=== PATIENT | male | born 2000 | race Caucasian/White ===

== ENCOUNTER 2021-11-08 07:02 | Inpatient (IN) | payer OTHER ==
[2021-11-08] VITALS (31 sets, daily range): BP systolic 0–193; BP diastolic 52–103
[~2021-11-08] VITALS: Ht 172.7 cm; Wt 50.6 kg
--- NOTE | 2021-11-08 07:26 | NUR ---
Pt arrived via stretcher from [facility] on mechanical ventilation. No belongings with the pt. Pt is not on sedation. Rectal tube placed for severe liquid stool loss. Pupils fixed and dilated and no gag reflex present. Reid scale of 3. Addendum: 11/08/21 at 0741 by ZURI MAS RN RN Amended: Links added.
[2021-11-08 07:59] LABS: BASE EXCESS COOX -9 mmol/L (-3-3); HCO3 COOX 15 mmol/L (21-28); METHEMOGLOBIN 0.4 % (0.0-1.9); PCO2 COOX 28 mmHg (35-46); PO2 COOX 143 mmHg (85-108); SAT O2 COOX 99 % (92-99)
--- NOTE | 2021-11-08 08:05 | RAD ---
XR CHEST 1V INDICATION: ETT PLACEMENT COMPARISON STUDY: 11/08/2021. FINDINGS: Life Support Devices: Endotracheal tube terminates 3 cm above the atilio. Enteric tube courses into t he stomach and beyond the inferior [id number]. Lungs: Normal lung volume. Improving right perihilar opacities. Pleura: No pleural effusion or pneumothorax. Heart and Mediastinum: Stable cardiomediastinal silhouette and great vessels. Bones and Soft Tissues: Stable regional skeleton and soft tissues. IMPRESSION: 1. Improving right perihilar opacities. 2. Life support devices as above. Electronically signed by: Diogenes Sandy MD (11/08/2021 8:03 AM) [id number]
[2021-11-08 08:10] LABS: CALCIUM 8.7 mg/dL (8.5-10.1); CREATININE 1.4 mg/dL (0.7-1.3); GFR 64.6; POTASSIUM 3.9 mmol/L (3.5-5.1)
[2021-11-08 08:15] LABS: BASO % 0 % (0-3); EOS % 0 % (0-3); HEMATOCRIT 49.3 % (39.0-53.0); HEMOGLOBIN 16.8 g/dL (13.0-17.5); LYMPH # 1.3 x10^3/uL (1.0-4.8); LYMPH % 4 % (24-48); MEAN CORPUSCULAR HEMOGLOBIN 30 pg (25-35); MEAN CORPUSCULAR HGB CONC 34 g/dL (31-37); MEAN CORPUSCULAR VOLUME 88 fL (79-100); MONO # 1.4 x10^3/uL (0.0-1.1); MONO % 4 % (0-9); NEUT # 33.2 x10^3/uL (1.8-7.7); NEUT % 92 % (31-73); PLATELET COUNT 303 x10^3/uL (140-400); RED BLOOD COUNT 5.58 x10^6/uL (4.30-5.70); RED CELL DISTRIBUTION WIDTH 13.7 % (11.5-14.5)
[2021-11-08 08:16] LABS: ALBUMIN 4.1 g/dL (3.4-5.0); ALBUMIN/GLOBULIN RATIO 1.2 (1.0-1.7); TOTAL BILIRUBIN 0.8 mg/dL (0.2-1.0); TOTAL PROTEIN 7.5 g/dL (6.4-8.2)
[2021-11-08] MEDS ORDERED: IV NORMAL SALINE 1000ML BAG 1,000 ML IV ONE ×2 (08:30)
[2021-11-08] MEDS ORDERED: SODIUM BICARB ADULT 8.4% 50 MEQ/50 ML DISP.SYRIN. IV ONE (08:30)
--- NOTE | 2021-11-08 08:42 | PDOC2 ---
NEUROLOGY CONSULT Date of Service DOS: DATE: 11/08/21 TIME: 08:35 Reason for Consult Reason for Consult: Suicide attempt, postcode Referring Physician Referring Physician: Dr. Mitchell Source Source: Caregiver (Girlfriend), Chart review History of Present Illness History of Present Illness The patient is a 21-year-old right-handed male who presented to the [facility] emergency department unresponsive. His girlfriend states that they had an argument, she went to take a shower and when she came out he was hanging in the closet. She was in the shower for about 20 minutes. He was cyanotic. She got them down and started CPR, called ambulance. He has had depression and insomnia in the past. He had 3 rounds of epi, return of pulse, then again asystole, he finally developed a pulse. He was intubated at the scene but the airway was lost temporarily, then restored. Patient and girlfriend are both from [place]. Patient's father is driving him, mother is catching a plane flight. Past Medical History Psych: Depression Past Surgical History Past Surgical History: No pertinent history Family History Family History: No pertinent hx Social History Social History Has a girlfriend, occasional alcohol and tobacco, in the Current Medications Current Medications Current Medications Sodium Bicarbonate (Sodium Bicarb Adult 8.4% Syr) 50 meq 1X ONCE IV ; Start 11/08/21 at 08:30; Stop 11/08/21 at 08:31; Status DC Sodium Chloride 1,000 ml @ 1,000 mls/hr 1X ONCE IV ; Start 11/08/21 at 08:30; Stop 11/08/21 at 09:29 Sodium Chloride 1,000 ml @ 1,000 mls/hr 1X ONCE IV ; Start 11/08/21 at 08:30; Stop 11/08/21 at 09:29 Allergies Allergies: Coded Allergies: Unable to Assess (Unverified , 11/08/21) POST CODE ROS Review of System Negative for fever, chills, weight loss, shortness of breath, chest pain, indigestion, hematochezia, melena, and dysuria. Full 14-point review of systems is negative. Physical Exam Physical Examination General: Well-developed, well-nourished white male in no acute distress. Intubated, not sedated HEENT: Normocephalic andatraumatic. Tympanic membranes clear.Temporal arteriespulsatile and nontender.Fundoscopic exam unremarkable Neck: Supple without bruit, no meningismus Musculoskeletal: Stability:see neurologic. Gait exam:see neurologic. Tone:see neurologic.Strength:see neurologic. Neurological: Neurology Brain note Prerequisites (all must be checked) X Coma, irreversible and cause known. X Neuroimaging explains coma. X DIRECTOR SURGICAL depressant drug effect absent (if indicated toxicology screen; X if barbiturates given, serum level <10 g/mL). X No evidence of residual paralytics (electrical stimulation if paralytics used). X Absence of severe acid-base, electrolyte, endocrine abnormality. X Normothermia or mild hypothermia (core temperature >36C). X Systolic blood pressure =100 mm Hg. X No spontaneous respirations. Examination (all must be checked) X Pupils nonreactive to bright light. X Corneal reflex absent. X Oculocephalic reflex absent (tested only if C-spineintegrity ensured). X Oculovestibular reflex absent. X No facial movement to noxious stimuli at supraorbital nerve, temporomandibular joint. X Gag reflex absent. X Cough reflex absent to tracheal suctioning. X Absence of motor response to noxious stimuli in all four limbs (spinally mediated reflexes are permissible). Vitals VITALS Vital Signs Date Time Temp Pulse Resp B/P (MAP) Pulse Ox O2 Delivery O2 Flow Rate FiO2 11/08/21 07:46 98 Ventilator 11/08/21 06:10 93.2 139 24 133/86 (102) 93.2 Labs Labs Laboratory Tests Test 11/08/21 07:27 11/08/21 07:50 11/08/21 07:58 Glucose (Fingerstick) 107 mg/dL (70-99) White Blood Count 36.0 x10^3/uL (4.0-11.0) Red Blood Count 5.58 x10^6/uL (4.30-5.70) Hemoglobin 16.8 g/dL (13.0-17.5) Hematocrit 49.3 % (39.0-53.0) Mean Corpuscular Volume 88 fL (79-100) Mean Corpuscular Hemoglobin 30 pg (25-35) Mean Corpuscular Hemoglobin Concent 34 g/dL (31-37) Red Cell Distribution Width 13.7 % (11.5-14.5) Platelet Count 303 x10^3/uL (140-400) Neutrophils (%) (Auto) 92 % (31-73) Lymphocytes (%) (Auto) 4 % (24-48) Monocytes (%) (Auto) 4 % (0-9) Eosinophils (%) (Auto) 0 % (0-3) Basophils (%) (Auto) 0 % (0-3) Neutrophils # (Auto) 33.2 x10^3/uL (1.8-7.7) Lymphocytes # (Auto) 1.3 x10^3/uL (1.0-4.8) Monocytes # (Auto) 1.4 x10^3/uL (0.0-1.1) Eosinophils # (Auto) 0.0 x10^3/uL (0.0-0.7) Basophils # (Auto) 0.0 x10^3/uL (0.0-0.2) Sodium Level 142 mmol/L (136-145) Potassium Level 3.9 mmol/L (3.5-5.1) Chloride Level 109 mmol/L (98-107) Carbon Dioxide Level 15 mmol/L (21-32) Anion Gap 18 (6-14) Blood Urea Nitrogen 23 mg/dL (8-26) Creatinine 1.4 mg/dL (0.7-1.3) Estimated GFR (Cockcroft-Gault) 64.6 BUN/Creatinine Ratio 16 (6-20) Glucose Level 109 mg/dL (70-99) Calcium Level 8.7 mg/dL (8.5-10.1) Total Bilirubin 0.8 mg/dL (0.2-1.0) Aspartate Amino Transf (AST/SGOT) 331 U/L (15-37) Alanine Aminotransferase (ALT/SGPT) 162 U/L (16-63) Alkaline Phosphatase 99 U/L (46-116) Total Protein 7.5 g/dL (6.4-8.2) Albumin 4.1 g/dL (3.4-5.0) Albumin/Globulin Ratio 1.2 (1.0-1.7) O2 Saturation 99 % (92-99) Arterial Blood pH 7.34 (7.35-7.45) Arterial Blood pCO2 at Patient Temp 28 mmHg (35-46) Arterial Blood pO2 at Patient Temp 143 mmHg (85-108) Arterial Blood HCO3 15 mmol/L (21-28) Arterial Blood Base Excess -9 mmol/L (-3-3) Oxyhemoglobin 98.0 % Methemoglobin 0.4 % (0.0-1.9) Carbon Monoxide, Quantitative 0.3 % (0.0-1.9) FiO2 50% vent Laboratory Tests Test 11/08/21 07:27 11/08/21 07:50 11/08/21 07:58 Glucose (Fingerstick) 107 mg/dL (70-99) White Blood Count 36.0 x10^3/uL (4.0-11.0) Red Blood Count 5.58 x10^6/uL (4.30-5.70) Hemoglobin 16.8 g/dL (13.0-17.5) Hematocrit 49.3 % (39.0-53.0) Mean Corpuscular Volume 88 fL (79-100) Mean Corpuscular Hemoglobin 30 pg (25-35) Mean Corpuscular Hemoglobin Concent 34 g/dL (31-37) Red Cell Distribution Width 13.7 % (11.5-14.5) Platelet Count 303 x10^3/uL (140-400) Neutrophils (%) (Auto) 92 % (31-73) Lymphocytes (%) (Auto) 4 % (24-48) Monocytes (%) (Auto) 4 % (0-9) Eosinophils (%) (Auto) 0 % (0-3) Basophils (%) (Auto) 0 % (0-3) Neutrophils # (Auto) 33.2 x10^3/uL (1.8-7.7) Lymphocytes # (Auto) 1.3 x10^3/uL (1.0-4.8) Monocytes # (Auto) 1.4 x10^3/uL (0.0-1.1) Eosinophils # (Auto) 0.0 x10^3/uL (0.0-0.7) Basophils # (Auto) 0.0 x10^3/uL (0.0-0.2) Sodium Level 142 mmol/L (136-145) Potassium Level 3.9 mmol/L (3.5-5.1) Chloride Level 109 mmol/L (98-107) Carbon Dioxide Level 15 mmol/L (21-32) Anion Gap 18 (6-14) Blood Urea Nitrogen 23 mg/dL (8-26) Creatinine 1.4 mg/dL (0.7-1.3) Estimated GFR (Cockcroft-Gault) 64.6 BUN/Creatinine Ratio 16 (6-20) Glucose Level 109 mg/dL (70-99) Calcium Level 8.7 mg/dL (8.5-10.1) Total Bilirubin 0.8 mg/dL (0.2-1.0) Aspartate Amino Transf (AST/SGOT) 331 U/L (15-37) Alanine Aminotransferase (ALT/SGPT) 162 U/L (16-63) Alkaline Phosphatase 99 U/L (46-116) Total Protein 7.5 g/dL (6.4-8.2) Albumin 4.1 g/dL (3.4-5.0) Albumin/Globulin Ratio 1.2 (1.0-1.7) O2 Saturation 99 % (92-99) Arterial Blood pH 7.34 (7.35-7.45) Arterial Blood pCO2 at Patient Temp 28 mmHg (35-46) Arterial Blood pO2 at Patient Temp 143 mmHg (85-108) Arterial Blood HCO3 15 mmol/L (21-28) Arterial Blood Base Excess -9 mmol/L (-3-3) Oxyhemoglobin 98.0 % Methemoglobin 0.4 % (0.0-1.9) Carbon Monoxide, Quantitative 0.3 % (0.0-1.9) FiO2 50% vent Images Images EXAM: CT HEAD WITHOUT IV CONTRAST Findings of cerebral edema with limited differentiation of the lezama-white matter and basal ganglia may be seen along the spectrum of hypoxic-ischemic injury. Near-complete effacement of the ventricular system. There is crowding of the basilar cisterns. High density of the cerebral arteries and dural venous sinuses possibly artifactual although thrombosis could have this appearance. The calvarium demonstrates no evidence of fracture or focal lesion. There is normal aeration of the visualized paranasal sinuses and mastoid air cells. The visualized portions of the orbits are normal. IMPRESSION: Changes of cerebral edema likely from hypoxic ischemic injury. High density within the cerebral arteries and venous sinuses, likely artifactual but can also be seen with associated thrombosis. EXAM: CT CERVICAL SPINE WITHOUT IV CONTRAST Vertebral body heights are preserved. No spondylolisthesis. Intervertebral disc heights are preserved. Please see dedicated CT chest findings for lung findings. IMPRESSION: No acute cervical spine fracture or subluxation Findings discussed with NANCY DELANEY MD at 11/08/2021 4:32 AM. FOR INTERNAL CODING PURPOSES RESULT CODE: (C) Electronically signed by: Cruz Lee MD (11/08/2021 4:39 AM) [id number] [place] [id number] Assessment/Plan Assessment/Plan Impression: Postcode, hanging, examination consistent with brain Recommendations: Apnea testing Discussed grave situation with patient's girlfriend Await arrival of parents Electroencephalogram tax examining technician is not available, this is not a necessary test, but if family insists on ancillary testing, I will order a cerebral blood flow test Thank you for letting me help with the patient's care REBEKAH ALBARRAN MD Nov 08, 2021 08:42
--- NOTE | 2021-11-08 08:49 | NUR ---
Neuro check noted No gag,cough,corneal reflex. Dr Stoddard in- Caloric test bilateral ear as well as 30 sec apnea test w poor results. All tests explained to girl friend per MD as well as prognosis of results. Vent settings adjusted per RT(RR decreased from 24 -20/ FIO2 50-100%) after am blood gases.(RR ^ 20) NS bolus initiated as well as 1 amp NA HCL. Repeat ABG w further vent changes per RT w RR decreased to 16. Poncho(ORIN) in touch w patients mother w information given to her by MD. Condition grave.
[2021-11-08 08:51] LABS: BASE EXCESS ABG -5 mmol/L (-3-3); HCO3 ABG 18 mmol/L (21-28); PCO2 ABG 31 mmHg (35-46); PO2 ABG 472 mmHg (85-108); SAT O2 ABG 100 % (92-99)
[2021-11-08 09:29] LABS: BASE EXCESS ABG -9 mmol/L (-3-3); HCO3 ABG 16 mmol/L (21-28); PCO2 ABG 32 mmHg (35-46); SAT O2 ABG 100 % (92-99)
[2021-11-08 09:31] LABS: PO2 ABG 525 mmHg (85-108)
[2021-11-08 09:32] LABS: FIO2 ABG 100% VENT
[2021-11-08] MEDS ORDERED: PIP/TAZO PER PHARMACY MC PRN (09:45)
[2021-11-08 10:21] LABS: BASE EXCESS ABG -11 mmol/L (-3-3); HCO3 ABG 15 mmol/L (21-28); PCO2 ABG 35 mmHg (35-46); PO2 ABG 469 mmHg (85-108); SAT O2 ABG 99 % (92-99)
--- NOTE | 2021-11-08 10:27 | CONS ---
DATE OF CONSULTATION: 11/08/2021 PULMONARY CONSULTATION ATTENDING PHYSICIAN: Dr. Mitchell. REASON FOR CONSULTATION: Respiratory failure, suicide attempt, code blue, likely brain . HISTORY OF PRESENT ILLNESS: The patient is a 21-year-old who presented to [facility] after he was found unresponsive. His girlfriend stated that the patient had an argument with her. Grider then went to take a shower. When he came out, she noticed that he was hanging in the closet. She was in the shower for about 20-25 minutes. The patient was noted to be cyanotic. She got him down and started CPR and called ambulance. The patient has prior history of depression and insomnia. When EMS arrived, they gave 3 rounds of epinephrine with return of pulses. Then, he became asystole again and then, eventually had a pulse. I was told that the downtime with ACLS protocol was about 45 minutes. The patient was intubated in the scene. The patient underwent imaging study. His CT of the chest revealed some perihilar infiltrates, which have improved on a followup chest x-ray. The patient had a CT of the head at [facility]. The patient is currently intubated. He is not on sedation. He does not trigger the ventilator. He has fixed and dilated pupils. He does not have a gag reflex. He is currently on assist control mode. The patient's arterial blood gases have been all reviewed. Latest shows a pH of 7.32, pCO2 of 32 and a pO2 of 525 on 100% FiO2 with rate of 16. I have been asked to see him for further evaluation. PAST MEDICAL HISTORY: Significant for depression and insomnia. PAST SURGICAL HISTORY: Unknown. ALLERGIES: Not available. MEDICATIONS: Given in the ER were reviewed, but he is currently not on any medications. REVIEW OF SYSTEMS: Unable to obtain as he is on the ventilator. PHYSICAL EXAMINATION: VITAL SIGNS: Shows a blood pressure of 189 systolic and diastolic of 115. Pulses in the 140s. He is afebrile. EYES: His pupils are fixed and dilated. NECK: In a cervical collar. LUNGS: With bilateral breath sounds. CARDIOVASCULAR: With tachycardia. ABDOMEN: Soft, nontender. EXTREMITIES: With no pitting edema. LABORATORY DATA: Reviewed. His BUN is 23, creatinine 1.4. AST 331 and ALT 162. White cell count 36,000, hemoglobin 16.8 and platelets are 303. IMPRESSION: 1. Acute respiratory failure secondary to cardiopulmonary arrest. 2. Cardiopulmonary arrest, highly likely brain /brain anoxia. 3. Marked leukocytosis, likely reactive. Aspiration pneumonitis would also be another consideration. 4. Abnormal CT chest with perihilar infiltrates, which has improved on followup chest x-ray, likely aspiration pneumonitis. 5. Abnormal liver function tests, likely due to shock liver. 6. Cerebral edema by CT head. 7. Metabolic acidosis, currently improved. RECOMMENDATIONS: 1. We will continue with present assist control mode. I have reduced the respiratory rate, so we can achieve a pCO2 level in between 35-45, so apnea test can be performed. 2. Neurology is following the patient and follow their recommendations. 3. Clinically, the patient appears to have severe cerebral anoxia/early brain . Follow further recommendations by Neurology. 4. Add empiric antibiotic for suspicion of aspiration pneumonitis. 5. Follow white cell count. 6. Add DVT and stress ulcer prophylaxis. 7. The patient's parents are out of town and they are arriving from [place]. 8. We will discuss with the family about the prognosis along with recommendations from Neurology. 9. Discussed with RN and RT. Chart reviewed. Imaging studies reviewed. Total critical care time [address]: [place] TID: [id number] MTDElicia
[2021-11-08 11:25] LABS: % BANDS 18 % (0-9); % EOS 1 % (0-5); % LYMPHS 6 % (24-48); % MONOS 4 % (0-10); % SEGS 71 % (35-66); PLT ESTIMATE ADEQUATE (ADEQUATE)
[2021-11-08 11:27] LABS: TOXIC VACUOLATION PRESENT
--- NOTE | 2021-11-08 12:27 | HP ---
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 He was all blue according to her in his face and ears. They apparently have an argument earlier and she went to have a shower and when she came back, she would not find him. She got the belt off him and put him on the floor and started the CPR and called the ambulance. According to his girlfriend, the patient has recently had problems with depression and insomnia. He was taking trazodone for sleep and has recently complained of stomach flu over the last couple of days and that he is fairly healthy according to him. The patient was apparently unobserved for about 20 minutes per his girlfriend. The patient was coded by paramedics. He has intraosseous in the left tibia. He was intubated at the scene. He lost his airway on the move and an oral intubation tube was placed. He had a CPR en route with 3 epinephrine given in the field. The patient had short return of pulse, but again asystole. He developed rhythm on monitor while CPR was continued. Eventually, the patient did develop the pulse after 2 epinephrine IV, was intubated with inline stabilization by nursing. He basically has had EKG as well as CT scan of the head, cervical spine and CT scan of the chest with IV contrast and was basically transferred to [facility] ICU to continue mechanical ventilation. 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 PAST MEDICAL HISTORY: Unremarkable except for insomnia for which he takes trazodone for sleep. PAST SURGICAL HISTORY: Unremarkable. ALLERGIES: He has no known drug allergies. MEDICATIONS: He was on trazodone as well as ondansetron 4 mg ODT every 6-8 hours for nausea and vomiting. FAMILY HISTORY: Apparently noncontributory. SOCIAL HISTORY: He lives with his girlfriend. He is a officer. PHYSICAL EXAMINATION: GENERAL: On arrival to the Emergency Room, the patient was well-developed, well-nourished, in acute distress. HEENT: He was normocephalic with bilateral external ear normal. Oropharynx, he has apparently some blood in his mouth and his cords were extremely swollen and appeared to have aspirated. His eyes were fixed and dilated. NECK: Ligature yoder around the neck. Swollen neck. Trachea did appear, however, midline; no stepoff on the posterior neck. HEART: His heart rate was in sinus tachycardia. LUNGS: Showed bilateral coarse breath sounds, more prevalent on the right side. ABDOMEN: Mildly Distended. No bowel sounds. SKIN: Cyanotic, peripherally pale, excoriation of the left thigh, excoriation of both shoulders. No obvious injury in his back. EXTREMITIES: No edema. He has blood under bilateral nails and on fingers. NEUROLOGIC: He is unresponsive with bilateral disk edema. LABORATORY DATA: His EKG showed he was in sinus tachycardia at heart rate of 118 beats per minute. His lab work showed a white cell count of 19.7, hemoglobin 13, hematocrit 44, MCV 100 and platelet count of 239,000. His prothrombin time, INR and APTT and D-dimer were all elevated. Serum sodium was 142, potassium 4.8, chloride 103, bicarbonate 30, anion gap of 26, BUN 18, creatinine 1.7. Estimated GFR was 51 mL per minute. His glucose was 151, his calcium was 9.4, magnesium was 2.5. Total bilirubin and alkaline phosphatase are normal. AST, ALT were elevated. His troponin I high sensitivity was 417. Beta natriuretic peptide was 56. Total protein 6.1, albumin was 3.4. His arterial blood gas showed a pH of 7.05, pCO2 of 47, pO2 of 194, bicarbonate 30 and oxygen saturation was 100%. Urinalysis essentially unremarkable and toxic screen was negative. His influenza A and B were negative and coronavirus by rapid antigen testing was negative. His chest x-ray showed right perihilar and medial right lung base airspace opacities, possibly atelectasis, contusion or consolidative process such as pneumonia. He has had a CT scan of the head and cervical spine. CT scan of the head showed findings of cerebral edema with limited differentiation of the lezama and white matter and basal ganglia may be seen along with the spectrum of the hypoxic-ischemic injury near complete effacement of the ventricular system. There is crowding of the basilar cisterns, high density of the cerebral arteries and dural venous sinuses, possibly artifactual; although, thrombosis could have had this appearance. The calvarium demonstrates no evidence of fracture or focal lesion. There is normal aeration of the visualized paranasal sinuses and mastoid air cells. The visualized portion of the orbits are normal with the impression that the patient has changes of cerebral edema, likely from hypoxic-ischemic injury, high density within the cerebral arteries and venous sinuses, likely artifactual but can also be associated with thrombosis. CT scan of the cervical spine showed that vertebral body heights are preserved. No spondylolisthesis. Intervertebral disk heights are preserved. The impression that the patient has no acute cervical spine fracture or subluxation. CT scan of the chest showed the patient has endotracheal tube terminates within the distal thoracic trachea, enteric tube not seen, but extends at least to the body of the stomach. Heart is not enlarged. No pericardial effusion, no pleural effusion or pneumothorax. There is mediastinal soft tissue density, likely thymus. Airspace opacities in the perihilar region and lower lobes bilaterally, suspicious for aspiration. No mediastinal or hilar lymphadenopathy. No axillary lymphadenopathy. Visualized upper abdomen grossly unremarkable. The trace cortical offset at the anterior aspect of the left fourth and fifth and sixth rib, suspicious for age-indeterminate fracture, possibly chronic. ASSESSMENT AND PLAN: The patient was transferred to ICU of [facility] with obviously status post hanging with probably successful suicidal attempt. He has cardiopulmonary arrest and scratch yoder on both shoulders and left thigh. He has leukocytosis, aspiration pneumonitis, elevated troponin, elevated glucose, elevated AST and ALT, cerebral edema and metabolic acidosis and morbid with extremely poor prognosis. We did consult the neurologist and human resources mgr and faxed Dr. Collins. He was diagnosed with brain as he has coma with reversible due to hanging and severe ischemic anoxic encephalopathy. The patient is not on any toxic. His toxic screen was negative and no evidence residual paralytic aspect. His pupils are nonreactive to bright light. Corneal reflex absent. Oculocephalic reflex absent. Oculovestibular reflex absent. No facial movement to noxious stimuli at supraorbital nerve, temporomandibular joint. Gag reflex absent. Cough reflex absent to tracheal suctioning. Absence of motor response to noxious stimuli in all 4 limbs. Spinal mediate reflexes are permissible. Apparently his parents live in [place] and are flying or driving. [facility] team was contacted. B[facility] [place] DR: BETH/yolie TID: [id number]
[2021-11-08] MEDS: PIPERACILLIN/TAZOBACTAM 3.375 GM in IV NORMAL SALINE 50ML 50 ML IV SCH ×2 (17:57→17:58)
[2021-11-09] VITALS (36 sets, daily range): BP systolic 50–126; BP diastolic 25–78
[2021-11-09] MEDS: PIPERACILLIN/TAZOBACTAM 3.375 GM in IV NORMAL SALINE 50ML 50 ML IV SCH ×4 (00:22→18:00)
[2021-11-09] MEDS: IV RINGERS,LACTATED 1000ML 1,000 ML IV SCH ×2 (01:54→17:00)
[2021-11-09] MEDS: NOREPINEPHRINE VIAL 8 MG in IV DEXTROSE 5% 250 ML IV PRN ×3 (08:28→22:19)
--- NOTE | 2021-11-09 08:34 | PDOC ---
PROGRESS NOTES Date of Service DATE: 11/09/21 TIME: 08:29 Assessment Postcode, hanging, examination remains consistent with brain Plan Risks exceed need for repeat apnea testing Discussed with father No need for EEG or blood flow test DNR Mother arriving tonight, uncle arriving today, father needs help with issues Subjective None Objective Vital Signs Date Time Temp Pulse Resp B/P (MAP) Pulse Ox O2 Delivery O2 Flow Rate FiO2 11/09/21 07:18 99 Ventilator 11/09/21 06:00 144 12 91/57 (68) 11/09/21 04:00 101.0 101.0 Intake and Output 11/09/21 07:00 Intake Total 1600 ml Output Total 9350 ml Balance -7750 ml Intake Oral 0 ml IV Total 1600 ml Tube Feeding 0 ml Output Urine Total 8500 ml Stool Total 700 ml Gastric Drainage Total 150 ml PHYSICAL EXAM Prerequisites (all must be checked) Coma, irreversible and cause known. Neuroimaging explains coma. SWITCHBOARD CLERK depressant drug effect absent (if indicated toxicology screen; if barbiturates given, serum level <10 g/mL). No evidence of residual paralytics (electrical stimulation if paralytics used). Absence of severe acid-base, electrolyte, endocrine abnormality. Normothermia or mild hypothermia (core temperature >36C). Systolic blood pressure =100 mm Hg. No spontaneous respirations. Examination (all must be checked) Pupils nonreactive to bright light. Corneal reflex absent. Oculocephalic reflex absent (tested only if C-spineintegrity ensured). Oculovestibular reflex absent. No facial movement to noxious stimuli at supraorbital nerve, temporomandibular joint. Gag reflex absent. Cough reflex absent to tracheal suctioning. Absence of motor response to noxious stimuli in all four limbs (spinally mediated reflexes are permissible). Apnea testing (all must be checked) Apnea test aborted after 5 minutes yesterday, hypotensive, but no breaths taken Time of 11/09/21 08:40 Review of Relevant I have reviewed the following items kaycee (where applicable) has been applied. Labs Laboratory Tests Test 11/08/21 07:27 11/08/21 07:50 11/08/21 07:58 11/08/21 08:50 Glucose (Fingerstick) 107 mg/dL (70-99) White Blood Count 36.0 x10^3/uL (4.0-11.0) Red Blood Count 5.58 x10^6/uL (4.30-5.70) Hemoglobin 16.8 g/dL (13.0-17.5) Hematocrit 49.3 % (39.0-53.0) Mean Corpuscular Volume 88 fL (79-100) Mean Corpuscular Hemoglobin 30 pg (25-35) Mean Corpuscular Hemoglobin Concent 34 g/dL (31-37) Red Cell Distribution Width 13.7 % (11.5-14.5) Platelet Count 303 x10^3/uL (140-400) Neutrophils (%) (Auto) 92 % (31-73) Lymphocytes (%) (Auto) 4 % (24-48) Monocytes (%) (Auto) 4 % (0-9) Eosinophils (%) (Auto) 0 % (0-3) Basophils (%) (Auto) 0 % (0-3) Neutrophils # (Auto) 33.2 x10^3/uL (1.8-7.7) Lymphocytes # (Auto) 1.3 x10^3/uL (1.0-4.8) Monocytes # (Auto) 1.4 x10^3/uL (0.0-1.1) Eosinophils # (Auto) 0.0 x10^3/uL (0.0-0.7) Basophils # (Auto) 0.0 x10^3/uL (0.0-0.2) Segmented Neutrophils % 71 % (35-66) Band Neutrophils % 18 % (0-9) Lymphocytes % 6 % (24-48) Monocytes % 4 % (0-10) Eosinophils % 1 % (0-5) Toxic Vacuolation Present Platelet Estimate Adequate (ADEQUATE) Large Platelets Few Sodium Level 142 mmol/L (136-145) Potassium Level 3.9 mmol/L (3.5-5.1) Chloride Level 109 mmol/L (98-107) Carbon Dioxide Level 15 mmol/L (21-32) Anion Gap 18 (6-14) Blood Urea Nitrogen 23 mg/dL (8-26) Creatinine 1.4 mg/dL (0.7-1.3) Estimated GFR (Cockcroft-Gault) 64.6 BUN/Creatinine Ratio 16 (6-20) Glucose Level 109 mg/dL (70-99) Calcium Level 8.7 mg/dL (8.5-10.1) Total Bilirubin 0.8 mg/dL (0.2-1.0) Aspartate Amino Transf (AST/SGOT) 331 U/L (15-37) Alanine Aminotransferase (ALT/SGPT) 162 U/L (16-63) Alkaline Phosphatase 99 U/L (46-116) Total Protein 7.5 g/dL (6.4-8.2) Albumin 4.1 g/dL (3.4-5.0) Albumin/Globulin Ratio 1.2 (1.0-1.7) O2 Saturation 99 % (92-99) 100 % (92-99) Arterial Blood pH 7.34 (7.35-7.45) 7.39 (7.35-7.45) Arterial Blood pCO2 at Patient Temp 28 mmHg (35-46) 31 mmHg (35-46) Arterial Blood pO2 at Patient Temp 143 mmHg (85-108) 472 mmHg (85-108) Arterial Blood HCO3 15 mmol/L (21-28) 18 mmol/L (21-28) Arterial Blood Base Excess -9 mmol/L (-3-3) -5 mmol/L (-3-3) Oxyhemoglobin 98.0 % Methemoglobin 0.4 % (0.0-1.9) Carbon Monoxide, Quantitative 0.3 % (0.0-1.9) FiO2 50% vent 100% vent Test 11/08/21 09:28 11/08/21 10:20 O2 Saturation 100 % (92-99) 99 % (92-99) Arterial Blood pH 7.32 (7.35-7.45) 7.25 (7.35-7.45) Arterial Blood pCO2 at Patient Temp 32 mmHg (35-46) 35 mmHg (35-46) Arterial Blood pO2 at Patient Temp 525 mmHg (85-108) 469 mmHg (85-108) Arterial Blood HCO3 16 mmol/L (21-28) 15 mmol/L (21-28) Arterial Blood Base Excess -9 mmol/L (-3-3) -11 mmol/L (-3-3) FiO2 100% vent 100% vent Laboratory Tests Test 11/08/21 08:50 11/08/21 09:28 11/08/21 10:20 O2 Saturation 100 % (92-99) 100 % (92-99) 99 % (92-99) Arterial Blood pH 7.39 (7.35-7.45) 7.32 (7.35-7.45) 7.25 (7.35-7.45) Arterial Blood pCO2 at Patient Temp 31 mmHg (35-46) 32 mmHg (35-46) 35 mmHg (35-46) Arterial Blood pO2 at Patient Temp 472 mmHg (85-108) 525 mmHg (85-108) 469 mmHg (85-108) Arterial Blood HCO3 18 mmol/L (21-28) 16 mmol/L (21-28) 15 mmol/L (21-28) Arterial Blood Base Excess -5 mmol/L (-3-3) -9 mmol/L (-3-3) -11 mmol/L (-3-3) FiO2 100% vent 100% vent 100% vent Medications Current Medications Sodium Bicarbonate (Sodium Bicarb Adult 8.4% Syr) 50 meq 1X ONCE IV Last administered on 11/08/21at 17:57; Start 11/08/21 at 08:30; Stop 11/08/21 at 0 8:31; Status DC Sodium Chloride 1,000 ml @ 1,000 mls/hr 1X ONCE IV Last administered on 11/08/21at 08:30; Start 11/08/21 at 08:30; Stop 11/08/21 at 09:29; Status DC Sodium Chloride 1,000 ml @ 1,000 mls/hr 1X ONCE IV Last administered on 11/08/21at 08:30; Start 11/08/21 at 08:30; Stop 11/08/21 at 09:29; Status DC Piperacillin Sod/ Tazobactam Sod (Zosyn Per Pharmacy) 1 each PRN DAILY PRN MC SEE COMMENTS; Start 11/08/21 at 09:45 Piperacillin Sod/ Tazobactam Sod 3.375 gm/Sodium Chloride 50 ml @ 100 mls/hr Q6HRS IV Last administered on 11/09/21at 05:46; Start 11/08/21 at 11:00 Ringer's Solution 1,000 ml @ 50 mls/hr Q20H IV Last administered on 11/09/21at 01:54; Start 11/08/21 at 21:00 Norepinephrine Bitartrate 8 mg/ Dextrose 258 ml @ 9.675 mls/ hr CONT PRN IV PER PROTOCOL Last administered on 11/09/21at 08:28; Start 11/09/21 at 08:30 Vitals/I & O Vital Sign - Last 24 Hours 11/08/21 11/08/21 11/08/21 11/08/21 08:30 08:44 09:00 09:23 Pulse 144 144 B/P (MAP) 185/92 (123) 193/98 (129) Pulse Ox 99 99 99 99 O2 Delivery Ventilator Ventilator Ventilator Ventilator 11/08/21 11/08/21 11/08/21 11/08/21 09:30 10:00 10:05 10:25 Pulse 146 146 155 B/P (MAP) 175/103 (127) 164/101 (122) 155/88 (110) Pulse Ox 99 99 99 O2 Delivery Ventilator Ventilator Ventilator 11/08/21 11/08/21 11/08/21 11/08/21 10:30 10:48 11:00 11:30 Temp 101.5 101.5 Pulse 150 146 146 Resp 16 12 B/P (MAP) 0/ 143/85 (104) 149/96 (113) Pulse Ox 99 99 99 99 O2 Delivery Ventilator Ventilator Ventilator Ventilator 11/08/21 11/08/21 11/08/21 11/08/21 12:00 12:00 12:30 12:50 Pulse 148 154 Resp 12 12 B/P (MAP) 160/81 (107) 165/103 (123) Pulse Ox 99 99 98 O2 Delivery Ventilator Mechanical Ventilator Ventilator Ventilator 11/08/21 11/08/21 11/08/21 11/08/21 13:00 13:30 14:00 14:30 Temp 99.0 99.0 Pulse 158 160 160 158 Resp 12 12 12 12 B/P (MAP) 156/100 (118) 151/88 (109) 135/85 (102) 120/70 (87) Pulse Ox 99 98 98 98 O2 Delivery Ventilator Ventilator Ventilator Ventilator 11/08/21 11/08/21 11/08/21 11/08/21 15:00 15:10 15:30 16:00 Pulse 154 152 Resp 12 12 B/P (MAP) 124/73 (90) 120/55 (76) Pulse Ox 98 98 98 O2 Delivery Ventilator Ventilator Ventilator Mechanical Ventilator 411/08/21 11/08/21 11/08/21 16:00 16:51 17:00 17:15 Temp 97.8 97.8 Pulse 150 148 144 Resp 12 12 12 B/P (MAP) 108/52 (70) 74/62 (66) 118/66 (83) Pulse Ox 98 100 97 98 O2 Delivery Ventilator Ventilator Ventilator Ventilator 11/08/21 11/08/21 11/08/21 11/08/21 17:30 18:00 19:00 20:00 Temp 100.5 100.5 Pulse 144 146 146 142 Resp 12 12 12 12 B/P (MAP) 121/79 (93) 118/66 (83) 100/61 (74) 111/66 (81) Pulse Ox 97 98 98 98 O2 Delivery Ventilator Ventilator Ventilator Ventilator 11/08/21 11/08/21 11/08/21 11/08/21 20:00 20:01 21:00 22:00 Pulse 146 146 Resp 12 12 B/P (MAP) 105/66 (79) 101/61 (74) Pulse Ox 98 99 98 O2 Delivery Mechanical Ventilator Ventilator Ventilator Ventilator 11/08/21 11/08/21 11/09/21 11/09/21 22:18 23:00 00:00 00:00 Temp 100.1 100.1 Pulse 142 141 Resp 12 12 B/P (MAP) 111/67 (82) 112/61 (78) Pulse Ox 98 98 98 O2 Delivery Ventilator Ventilator Mechanical Ventilator Ventilator 11/09/21 11/09/21 11/09/21 11/09/21 00:16 01:00 02:00 02:21 Pulse 138 144 Resp 12 12 B/P (MAP) 101/68 (79) 101/58 (72) Pulse Ox 98 98 98 98 O2 Delivery Ventilator Ventilator Ventilator Ventilator 11/09/21 11/09/21 11/09/21 11/09/21 03:00 04:00 04:00 05:00 Temp 101.0 101.0 Pulse 146 146 141 Resp 12 12 12 B/P (MAP) 108/59 (75) 91/55 (67) 93/54 (67) Pulse Ox 99 99 100 O2 Delivery Ventilator Ventilator Mechanical Ventilator Ventilator 11/09/21 11/09/21 11/09/21 05:03 06:00 07:18 Pulse 144 Resp 12 B/P (MAP) 91/57 (68) Pulse Ox 100 100 99 O2 Delivery Ventilator Ventilator Ventilator Intake and Output 11/08/21 11/08/21 11/09/21 15:00 23:00 07:00 Intake Total 0 ml 1600 ml Output Total 3500 ml 3750 ml 2100 ml Balance -3500 ml -2150 ml -2100 ml Justicifation of Admission Dx: Justifications for Admission: Justification of Admission Dx: N/A REBEKAH ALBARRAN MD Nov 09, 2021 08:34
[2021-11-09 10:02] LABS: BASE EXCESS ABG -8 mmol/L (-3-3); HCO3 ABG 18 mmol/L (21-28); PCO2 ABG 40 mmHg (35-46); PO2 ABG 458 mmHg (85-108); SAT O2 ABG 99 % (92-99)
[2021-11-09 10:07] LABS: FIO2 ABG 100
[2021-11-09 11:05] LABS: BASE EXCESS ABG -11 mmol/L (-3-3); HCO3 ABG 21 mmol/L (21-28); PCO2 ABG 75 mmHg (35-46); PO2 ABG 401 mmHg (85-108)
[2021-11-09 11:06] LABS: FIO2 ABG 100; SAT O2 ABG 100 % (92-99)
--- NOTE | 2021-11-09 11:11 | PDOC ---
PULMONARY PROGRESS NOTES DATE: 11/09/21 TIME: 11:06 Subjective Patient remains on the ventilator. Remains unresponsive. Does not trigger the ventilator. Pupils fixed and dilated. Patient declared by the neurologist this morning Apnea test yesterday could not be completed as within 5 minutes patient's blood pressure dropped. Vitals Vital Signs Date Time Temp Pulse Resp B/P (MAP) Pulse Ox O2 Delivery O2 Flow Rate FiO2 11/09/21 10:41 Ventilator 11/09/21 10:30 8.0 11/09/21 09:18 99 11/09/21 06:00 144 12 91/57 (68) 11/09/21 04:00 101.0 101.0 Lungs: Clear Cardiovascular: S1 Abdomen: Soft Extremities: No Edema Skin: Warm Labs Laboratory Tests Test 11/08/21 07:27 11/08/21 07:50 11/08/21 07:58 11/08/21 08:50 Glucose (Fingerstick) 107 mg/dL (70-99) White Blood Count 36.0 x10^3/uL (4.0-11.0) Red Blood Count 5.58 x10^6/uL (4.30-5.70) Hemoglobin 16.8 g/dL (13.0-17.5) Hematocrit 49.3 % (39.0-53.0) Mean Corpuscular Volume 88 fL (79-100) Mean Corpuscular Hemoglobin 30 pg (25-35) Mean Corpuscular Hemoglobin Concent 34 g/dL (31-37) Red Cell Distribution Width 13.7 % (11.5-14.5) Platelet Count 303 x10^3/uL (140-400) Neutrophils (%) (Auto) 92 % (31-73) Lymphocytes (%) (Auto) 4 % (24-48) Monocytes (%) (Auto) 4 % (0-9) Eosinophils (%) (Auto) 0 % (0-3) Basophils (%) (Auto) 0 % (0-3) Neutrophils # (Auto) 33.2 x10^3/uL (1.8-7.7) Lymphocytes # (Auto) 1.3 x10^3/uL (1.0-4.8) Monocytes # (Auto) 1.4 x10^3/uL (0.0-1.1) Eosinophils # (Auto) 0.0 x10^3/uL (0.0-0.7) Basophils # (Auto) 0.0 x10^3/uL (0.0-0.2) Segmented Neutrophils % 71 % (35-66) Band Neutrophils % 18 % (0-9) Lymphocytes % 6 % (24-48) Monocytes % 4 % (0-10) Eosinophils % 1 % (0-5) Toxic Vacuolation Present Platelet Estimate Adequate (ADEQUATE) Large Platelets Few Sodium Level 142 mmol/L (136-145) Potassium Level 3.9 mmol/L (3.5-5.1) Chloride Level 109 mmol/L (98-107) Carbon Dioxide Level 15 mmol/L (21-32) Anion Gap 18 (6-14) Blood Urea Nitrogen 23 mg/dL (8-26) Creatinine 1.4 mg/dL (0.7-1.3) Estimated GFR (Cockcroft-Gault) 64.6 BUN/Creatinine Ratio 16 (6-20) Glucose Level 109 mg/dL (70-99) Calcium Level 8.7 mg/dL (8.5-10.1) Total Bilirubin 0.8 mg/dL (0.2-1.0) Aspartate Amino Transf (AST/SGOT) 331 U/L (15-37) Alanine Aminotransferase (ALT/SGPT) 162 U/L (16-63) Alkaline Phosphatase 99 U/L (46-116) Total Protein 7.5 g/dL (6.4-8.2) Albumin 4.1 g/dL (3.4-5.0) Albumin/Globulin Ratio 1.2 (1.0-1.7) O2 Saturation 99 % (92-99) 100 % (92-99) Arterial Blood pH 7.34 (7.35-7.45) 7.39 (7.35-7.45) Arterial Blood pCO2 at Patient Temp 28 mmHg (35-46) 31 mmHg (35-46) Arterial Blood pO2 at Patient Temp 143 mmHg (85-108) 472 mmHg (85-108) Arterial Blood HCO3 15 mmol/L (21-28) 18 mmol/L (21-28) Arterial Blood Base Excess -9 mmol/L (-3-3) -5 mmol/L (-3-3) Oxyhemoglobin 98.0 % Methemoglobin 0.4 % (0.0-1.9) Carbon Monoxide, Quantitative 0.3 % (0.0-1.9) FiO2 50% vent 100% vent Test 11/08/21 09:28 11/08/21 10:20 11/09/21 09:36 O2 Saturation 100 % (92-99) 99 % (92-99) 99 % (92-99) Arterial Blood pH 7.32 (7.35-7.45) 7.25 (7.35-7.45) 7.27 (7.35-7.45) Arterial Blood pCO2 at Patient Temp 32 mmHg (35-46) 35 mmHg (35-46) 40 mmHg (35-46) Arterial Blood pO2 at Patient Temp 525 mmHg (85-108) 469 mmHg (85-108) 458 mmHg (85-108) Arterial Blood HCO3 16 mmol/L (21-28) 15 mmol/L (21-28) 18 mmol/L (21-28) Arterial Blood Base Excess -9 mmol/L (-3-3) -11 mmol/L (-3-3) -8 mmol/L (-3-3) FiO2 100% vent 100% vent 100 Laboratory Tests Test 11/09/21 09:36 O2 Saturation 99 % (92-99) Arterial Blood pH 7.27 (7.35-7.45) Arterial Blood pCO2 at Patient Temp 40 mmHg (35-46) Arterial Blood pO2 at Patient Temp 458 mmHg (85-108) Arterial Blood HCO3 18 mmol/L (21-28) Arterial Blood Base Excess -8 mmol/L (-3-3) FiO2 100 Impression . IMPRESSION: 1. Acute respiratory failure secondary to cardiopulmonary arrest. Now brain- . 2. Cardiopulmonary arrest, brain- declared by neurologist this morning 3. Marked leukocytosis, likely reactive. Aspiration pneumonitis would also be another consideration. 4. Abnormal CT chest with perihilar infiltrates, which has improved on followup chest x-ray, likely aspiration pneumonitis. 5. Abnormal liver function tests, likely due to shock liver. 6. Cerebral edema by CT head. 7. Metabolic acidosis, currently improved. 8. Fever, Covid positive Plan . RECOMMENDATIONS: 1. Patient continues to have no spontaneous respirations, no gag reflex, no pupillary reflex. Absent corneal reflex, no response to noxious stimuli. Pupils remain fixed and dilated. He is not on any sedatives or paralytics.He does not have any significant acid base disorder.He is not hypothermic and does not have endocrine disorder. Yesterday apnea test could not be performed as within 5 minutes blood pressure dropped and test was aborted. Arterial blood gases this morning with the reduction in the respiratory rate showed a pH of 7.32 PCO2 50 and a PO2 of 391 with bicarb of 20. Adjustments on the respiratory rate made again and follow-up ABGs prior to the repeated apnea test showed a pH of 7.27 PCO2 39 and a PO2 of 458 with bicarb of 18. Second apnea test performed this morning. Patient was on low-dose Levophed during the test. Patient did lasted 10 minutes. At the conclusion of the test patient did drop the blood pressure and was immediately placed back on the ventilator. Blood gases obtained prior to placement on the ventilator showed a pH of 7.06 PCO2 of 75 and a PO2 of 401 bicarb of 21. During this time patient did not had any spontaneous respirations. Based on clinical assessment since admission and results of the second apnea test this morning, I concur with neurologist that patient is brain . I agree that no additional testing is required. Patient's girlfriend was informed at the bedside. Discussed with RN and RT. Total critical care time 35 minutes. JORDON MILES MD Nov 09, 2021 11:11
--- NOTE | 2021-11-09 12:16 | PN ---
DATE: 11/09/2021 SUBJECTIVE: The patient continues to be on mechanical ventilation. He was evaluated yesterday by the neurologist and was declared . He is now a DNR and apparently apnea test could not be done yesterday. He also had episodes of hypotension for which we gave him a bolus of normal saline, start him on Levophed. The [facility] transplant team are here; however, his father is here, mother is arriving today. On examining him, he continues to be intubated and mechanically ventilated. He is on Levophed as well as IV fluid and piperacillin for possible aspiration pneumonia. OBJECTIVE: GENERAL: On examining him, there was no pallor, jaundice, cyanosis or thyromegaly. No jugular venous distention. No lower limb edema. VITAL SIGNS: His heart rate when I saw him this morning was 144, blood pressure was 91/57, temperature was 101, respiratory rate 12, and oxygen saturation was 100%. HEAD, EYES, EARS, NOSE, AND THROAT: Normocephalic, atraumatic. He has orotracheal and orogastric tube in place. NECK: Supple. HEART: Normal first and second heart sounds. No gallop, rub, or murmur. He was in sinus tachycardia. CHEST: Showed central trachea, equal bilateral expansion, air entry, vesicular breath sounds. I could not appreciate any crepitation or rhonchi anteriorly. ABDOMEN: Scaphoid, soft, nontender. NEUROLOGIC: He is brain . His intake and output were incompletely recorded. LABORATORY DATA: Has no lab work done today. ASSESSMENT: In summary, this is a 21-year-old male patient with status post code. He committed suicide by hanging and his examination done by the board certified neurologist, was consistent with brain . PLAN: To continue with Levophed. Continue with IV antibiotic. Continue with mechanical ventilation. Await family decision regarding organ donation. BETH/PAYAM DR: Paxton TID: [id number]
--- NOTE | 2021-11-09 21:51 | NUR ---
7A ABG then etCO2 monitoring to ensure accurate numbers prior to Apnea test. 10 min test from [id number]. Levo started prior to test w some adjustments to assist w pressure as well as use of NS bolus'. All prerequisites met.Started test: Sats unchanged at 100% w complete apnea during determination. Brain confirmed per results by test and confirmed by Dr Stoddard. Communicated information to Dede' father with questions answered as needed. Continue NS bolus over the 12H w temporary response in BP redings. MTN w prelim work done ,plan to return after patients mom arrives to late zofia. Pronounced by dr Stoddard. See notes for specifics.Reiterat results to family as needed o requested . Maintain stabiliztion til remainder of family unit at bedside. CONT poc
[2021-11-10] VITALS (12 sets, daily range): BP systolic 84–116; BP diastolic 32–50
[2021-11-10] MEDS: PIPERACILLIN/TAZOBACTAM 3.375 GM in IV NORMAL SALINE 50ML 50 ML IV SCH ×2 (00:44→06:17)
[2021-11-10] MEDS: NOREPINEPHRINE VIAL 8 MG in IV DEXTROSE 5% 250 ML IV PRN (00:54)
[2021-11-10] MEDS ORDERED: NOREPINEPHRINE VIAL 32 MG in IV D5W 250ML IV PRN (04:15)
--- NOTE | 2021-11-10 09:47 | NUR ---
Family declined organ donation to [employer] retail sales representative. [employer] retail sales representative from [employer] here to help family with end of life decisions. Called [facility] office to let them know of hand picker's case, spoke to Olivia, will call them back with cardiac time of and they will come pick the body up from our morgue. Per hand picker's office, patient will be disconnected from the ventilator but the ETT will remain in place. [facility] [place], [place].
--- NOTE | 2021-11-10 10:26 | PN ---
DATE: 11/10/2021 SUBJECTIVE: The patient continued to be on mechanical ventilation, although he is brain . [facility] transplant team has discussed the organ donation with the parents who apparently are not interested in organ donation and according to nursing staff, they will withdraw care sometimes this morning. The patient has already been pronounced by Dr. Collins. BETH/PAYAM DR: Paxton TID: [id number]
--- NOTE | 2021-11-10 11:48 | NUR ---
Patient disconnected from ventilator at 1108, had cardiac time of at 1121. Notified documentation nurse's office and MDs. Family at bedside.
--- NOTE | 2021-11-10 13:23 | DS ---
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 He was also odd blue according to her in his face and ears. They apparently had an argument earlier and she went to have a shower and when he came back, she would not find him. When she found him, she got the belt off him and put him on the floor, she started CPR and called the ambulance. According to his girlfriend, the patient has recently had problems with depression and insomnia. He was taking trazodone for sleep and has recently complained of stomach flu; however, he is generally fairly healthy according to her. The patient was apparently unobserved for about 20 minutes by his girlfriend. The patient was coded by the deposition operator. He has interosseous in his left tibia. He was intubated at the scene. He lost his airway on the move and an oral intubation tube was placed. He had a CPR en route with 3 epinephrine given in the field and the patient has short return of pulse, but again, he became asystole. He developed rhythm on monitor while CPR was continued. Eventually, the patient has developed a pulse after 2 epinephrine rounds. He was intubated with in line stabilization by nursing. 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 He was evaluated by Dr. Collins, the board certified neurologist and his evaluation and he basically did clear him ; however, the patient was continued on mechanical ventilation, IV fluid and inotropic support as his parents have not arrived yet. The [facility] transplant team has discussed with the family today and basically did not want to go ahead with any donation. They basically declined organ donation to the [facility] transplant network loan representative and our loan representative from [employer] came to help the family with end of life decision. Apparently [facility] office was called to let them know of pediatrics physician's case, spoke to and the patient was disconnected from the ventilator, but endotracheal tube remained in place. Family decided the home will be in [facility] in [place], [place]. The cause of is hanging and with resultant severe anoxic encephalopathy, worsened by code blue and hanging remains clear from the Neurology standpoint of view consistent with brain . During the examination, his pupils were unreactive to bright light. Corneal reflex absent, oculocephalic reflex absent , tested only if C-spine integrity is insured, ocular vestibular reflex absent, no facial movement to noxious stimuli at supraorbital nerve temporomandibular joint, gag reflex was absent. Cough reflex absent on tracheal suctioning and absence of motor response to noxious stimuli in all 4 limbs spinal permissible. ROXANNE/MALIKA DR: Paxton TID: [id number]
== END 2021-11-10 11:21 | DRG 208 ==
LOC: 1 WEST ICU 07:02
PROVIDERS: ADMIT Internal Medicine; ATTEND Internal Medicine
PROC: 5A1945Z Respiratory Ventilation, 24-96 Consecutive Hours (ICD-10-PCS; principal; 2021-11-08)
PROC: 0BH17EZ Insertion of Endotracheal Airway into Trachea, Via Natural or Artificial Opening (ICD-10-PCS; 2021-11-08)
PROC: 5A12012 Performance of Cardiac Output, Single, Manual (ICD-10-PCS; 2021-11-10)
DX: J96.01 Acute respiratory failure with hypoxia (principal); J69.0 Pneumonitis due to inhalation of food and vomit; G93.6 Cerebral edema; K72.00 Acute and subacute hepatic failure without coma; U07.1 COVID-19; G93.1 Anoxic brain damage, not elsewhere classified; E87.2 Acidosis; I46.9 Cardiac arrest, cause unspecified; A08.4 Viral intestinal infection, unspecified; Z66 Do not resuscitate; F32.A Depression, unspecified
CPT/HCPCS: 36415; 36600; 71045; 80053; 82805; 82962; 85007; 85025; 94002; 94003; J2543; J3490; J7030; J7060; J7120; G0378